=== PATIENT | female | born 1955 | race Caucasian/White ===

== ENCOUNTER → 2021-03-03 00:12 | Outpatient (CLI) | payer OTHER, SELFPAY ==
[2021-03-03 19:26] LABS: SARS-CoV-2 RNA PCR Negative
== END ==
PROVIDERS: PCP Family Medicine; Visit Provider Internal Medicine Gastroenterology
DX: Z01.812 Encounter for preprocedural laboratory examination (principal); Z20.822 Contact with and (suspected) exposure to COVID-19
CPT/HCPCS: C9803; U0003; U0005

== ENCOUNTER 2021-03-07 00:49 | Day surgery (SDC) | payer OTHER, SELFPAY ==
[2021-02-16 14:25] VITALS: BMI 36.5
[2021-03-07 08:55] VITALS: BP 149/88; PULSE 79; RESP 16; TEMP 36.6; O2SAT 98; BMI 36.4
[2021-03-07] MEDS: LACTATED RINGERS 1,000 ML 150 ML IV CONT (09:07)
--- NOTE | 2021-03-07 09:15 | WPDGICN ---
Assessment and Plan Assessment and plan (1) Family history of colonic polyps: Code(s): Z83.71 - Family history of colonic polyps Status: Acute Assessment and Plan: family history is significant both father and mother have had colon polyps. For this reason surveillance colonoscopy has been advised at 5 year intervals. GI Consult Note Consult date/time: 03/07/21 09:15 HPI: Xi Quiñonez is a 65 year old female Presents for surveillance screening colonoscopy. Both mother and father have had colon polyps. Patient states that her own weight appetite bowel movements are normal. She denies any blood in her stools. She denies abdominal pain. Patient's last colonoscopy was in 2014. Review of Systems Review of Systems: All systems reviewed & are unremarkable except as noted in HPI and below PMFSH Family History Family History Father Family history of glaucoma Hypertension Colon polyp Mother Colon polyp Other Diabetes mellitus Malignant neoplasm of prostate No family history of cardiovascular disease Social History Social History Smoking status: Never smoker Second hand tobacco smoke exposure: No Alcohol intake: current Drinks per week: 12 Alcohol use details: 2 drinks 5-6 nights weekly; either wine or beer Substance use: never Substance use type: does not use Living arrangements: with family Additional living arrangements comments: lives with spouse Gender identity (if verbalized by the patient): Female Sexual Orientation (if Verbalized by the Patient): Straight or Heterosexual Spiritual care concerns: No Meds Home Medications and Allergies Home Medications Medication Instructions Recorded Confirmed Type ascorbate calcium (vitamin C) 500 500 mg PO DAILY 12/27/20 03/07/21 History mg tablet multivitamin 1 tablet PO DAILY 12/27/20 03/07/21 History Allergies Allergy/AdvReac Type Severity Reaction Status Date / Time codeine AdvReac Severe Vomiting Verified 03/07/21 08:54 Vital Signs Vital Signs - 24 hr 03/07/21 08:55 Temperature 97.8 F Pulse Rate 79 Respiratory Rate 16 Blood Pressure 149/88 H Pulse Oximetry 98 Exam Narrative: Exam Narrative: Physical exam reveals patient be alert. Vital signs stable. HEENT exam is unremarkable. Patient is anicteric. Lungs are clear to auscultation and percussion. Heart is without murmur or extra sounds. Abdominal exam bowel sounds are present soft nontender with no organomegaly. Digital external rectal exam is normal
--- NOTE | 2021-03-07 09:41 | P.PNAN_ITS ---
Anes - Initial Pre Proc Eval Procedure: Operation Date: 03/07/21 10:00 Proposed Procedures p Screening Colonoscopy - Del Smith MD Date/Time: 03/07/21 09:41 Surgeon: Del Smith MD Pre Op Diagnosis: family hx of colon polyps, neoplasm screening Patient Data Age: 65 Gender: F Height: 1.73 m Weight: 108.7 kg Last Vital Signs Temp 97.8 F 03/07/21 08:55 Pulse 79 03/07/21 08:55 Resp 16 03/07/21 08:55 BP 149/88 H 03/07/21 08:55 Pulse Ox 98 03/07/21 08:55 Allergies Allergy/AdvReac Type Severity Reaction Status Date / Time codeine AdvReac Severe Vomiting Verified 03/07/21 08:54 Home Medications Medication Instructions Recorded Confirmed Type ascorbate calcium (vitamin C) 500 500 mg PO DAILY 12/27/20 03/07/21 History mg tablet multivitamin 1 tablet PO DAILY 12/27/20 03/07/21 History Patient hx anesthesia problems: none Family hx anesthesia problems: none [facility] Past Medical History Medical History (Updated 03/07/21 @ 09:39 by Suraj Rios MD) Hyperlipidemia Obesity (BMI 30-39.9) MATT (obstructive sleep apnea) Family History Family History Father Family history of glaucoma Hypertension Colon polyp Mother Colon polyp Other Diabetes mellitus Malignant neoplasm of prostate No family history of cardiovascular disease Social History Social History Smoking status: Never smoker Second hand tobacco smoke exposure: No Alcohol intake: current Drinks per week: 12 Alcohol use details: 2 drinks 5-6 nights weekly; either wine or beer Substance use: never Substance use type: does not use Living arrangements: with family Additional living arrangements comments: lives with spouse Gender identity (if verbalized by the patient): Female Sexual Orientation (if Verbalized by the Patient): Straight or Heterosexual Spiritual care concerns: No Anes - Eval Final PreProcedure Day of Procedure 03/07/21 09:41 Patient weight: obese Heart: regular rate and rhythm Lungs: clear to auscultation Airway: Mallampati scale class II Neurological: alert and oriented Last oral intake: >/= 8 hours ASA classification: III Emergent: no Anesthetic plan: proceed Anesthesia type and monitoring: general GIVS and standard monitoring Informed Consent: The patient's anesthetic plan and its attendant risks and benefits were discussed with the patient/family/POA. Questions were solicited and answers provided to the satisfaction of the patient/family/POA.
[2021-03-07 10:21] VITALS: BP 103/63; PULSE 77; RESP 15; O2SAT 98
[2021-03-07 10:31] VITALS: BP 102/63; PULSE 78; RESP 15; O2SAT 98
[2021-03-07 10:41] VITALS: BP 112/70; PULSE 78; RESP 18; O2SAT 99
== END 2021-03-07 10:55 | disposition home or self-care (01) ==
PROVIDERS: PCP Family Medicine; Visit Provider Internal Medicine Gastroenterology
PROC: 0DJD8ZZ Inspection of Lower Intestinal Tract, Via Natural or Artificial Opening Endoscopic (ICD-10-PCS; CPT 45378; principal; 2021-03-07 10:00)
DX: Z12.11 Encounter for screening for malignant neoplasm of colon (principal); D12.2 Benign neoplasm of ascending colon; K64.8 Other hemorrhoids; K57.30 Diverticulosis of large intestine without perforation or abscess without bleeding; Z83.71 Family history of colonic polyps; E78.5 Hyperlipidemia, unspecified; G47.33 Obstructive sleep apnea (adult) (pediatric); E66.9 Obesity, unspecified; Z68.36 Body mass index [BMI] 36.0-36.9, adult
CPT/HCPCS: 45385; 88305; C9803; J2704; J7120; U0003; U0005

== ENCOUNTER → 2021-05-16 17:22 | Outpatient (CLI) | payer OTHER, SELFPAY ==
--- NOTE | ~2021-05-16 | XR_ITS ---
EXAMINATION: XR knee LT min 4V DATE: 05/16/2021 18:44 INDICATION: Left knee pain. TECHNIQUE: 4 views of left knee including standing views were obtained. COMPARISON: None. FINDINGS: Bone alignment is normal. No fracture. There is moderate osteoarthritis of medial compartme nt and mild osteoarthritis of lateral and patellofemoral compartments. There is a small knee joint ef fusion. IMPRESSION: 1. Moderate left knee osteoarthritis. 2. Small left knee joint effusion. Reviewed, dictated and finalized at location A.
== END ==
PROVIDERS: PCP Family Medicine; Visit Provider Physician Assistant
DX: M25.562 Pain in left knee (principal); M17.12 Unilateral primary osteoarthritis, left knee; M25.462 Effusion, left knee
CPT/HCPCS: 73564

== ENCOUNTER 2022-07-26 08:30 | Outpatient (CLI) | payer OTHER, SELFPAY ==
[2022-07-26 18:18] LABS: Kit Draw Collected
== END 2022-07-26 08:31 | disposition home or self-care (01) ==
LOC: ANHGOSHLAB 08:35
PROVIDERS: PCP Family Medicine; Visit Provider Nurse Practitioner
DX: E78.5 Hyperlipidemia, unspecified (principal); Z13.21 Encounter for screening for nutritional disorder; Z13.29 Encounter for screening for other suspected endocrine disorder; Z13.6 Encounter for screening for cardiovascular disorders
CPT/HCPCS: 36415

== ENCOUNTER 2023-01-21 08:12 | Outpatient (CLI) | payer OTHER, SELFPAY ==
[2023-01-21 09:50] LABS: Kit Draw Collected
== END 2023-01-21 08:13 | disposition home or self-care (01) ==
LOC: ANHGOSHLAB 08:13
PROVIDERS: PCP Family Medicine; Visit Provider Physician Assistant
DX: R73.01 Impaired fasting glucose (principal); E78.5 Hyperlipidemia, unspecified
CPT/HCPCS: 36415

== ENCOUNTER 2023-02-05 08:08 | Outpatient (CLI) | payer OTHER, SELFPAY ==
[2023-02-05 10:30] LABS: Kit Draw Collected
== END 2023-02-05 08:09 | disposition home or self-care (01) ==
LOC: ANHGOSHLAB 08:11
PROVIDERS: PCP Family Medicine; Visit Provider Family Medicine
DX: E78.5 Hyperlipidemia, unspecified (principal); Z79.899 Other long term (current) drug therapy; E66.9 Obesity, unspecified
CPT/HCPCS: 36415

== ENCOUNTER → 2023-06-04 13:17 | Outpatient (CLI) | payer OTHER, SELFPAY ==
--- NOTE | ~2023-06-04 | DEXA_ITS ---
Bone Density Report Name: JAJA SOMERS Age: 67 Sex: Female Ethnicity: White Date of : 1955 Indication: postmenopausal; screening for osteoporosis; height loss; Referring Provider: Radhika Rogers Study: Bone densitometry was performed. Exam Date: June 04, 2023 Accession number: [id number] Bone Density: Region BMD T-score Z-score Classification AP Spine (L1-L4) 1.005 -0.4 1.4 Normal Femoral Neck (Left) 0.743 -1.0 0.6 Normal Total Hip (Left) 0.876 -0.5 0.7 Normal Femoral Neck (Right) 0.758 -0.8 0.7 Normal Total Hip (Right) 0.917 -0.2 1.1 Normal Total Hip Mean 0.897 -0.4 0.9 Normal World Health Organization criteria for BMD impression classify patients as: Normal (T-score at or above -1.0), Osteopenia (T-score between -1.0 and -2.5), or Osteoporosis (T-score at or below -2.5). 10-year Fracture Risk: FRAX not reported because: All T-scores for Spine Total, Hip Total, Femoral Neck at or above -1.0 Clinical Information Provided by Patient: Has used the following medications: Vitamin D Patient maximum height was 68 Menopause Age: 47 No regular weight bearing exercise Drinks caffeinated beverages Onset of menses at age 16 Number of children 2 Impression: The patient has normal bone mass. Discussion: BONE DENSITY IS ABOVE THE MINIMUM DESIRABLE LEVEL AT ALL SKELETAL SITES TESTED. This patient?s bone mineral density is above the minimum desirable level (T-score -1.0 or better) at all sites measured. The patient should follow a healthful lifestyle (good nutrition with adequate calcium and vitamin D, and appropriate weight-bearing exercise). Follow-Up: Consider repeating this study in 5 years or sooner if there is some new clinical indication. Reported by: GLENIS on 06/04/2023 1:33:00 PM. Reviewed, dictated and finalized at location AG[facility] ESQUIVEL
== END ==
PROVIDERS: PCP Family Medicine; Visit Provider Obstetrics & Gynecology
DX: Z13.820 Encounter for screening for osteoporosis (principal)
CPT/HCPCS: 77080

== ENCOUNTER 2023-07-31 07:54 | Outpatient (CLI) | payer OTHER, SELFPAY ==
[2023-07-31 19:28] LABS: Alanine Aminotransferase 28 U/L (6-35); Albumin Level 4.3 g/dL (3.5-5.1); Alkaline Phosphatase 65 U/L (38-126); Anion Gap 10 mmol/L (8-16); Aspartate Amino Transferase 21 U/L (14-36); Bilirubin,Total 0.6 mg/dL (0.2-1.3); Blood Urea Nitrogen 13 mg/dL (7-17); Calcium 9.5 mg/dL (8.4-10.2); Carbon Dioxide 28 mmol/L (22-30); Chloride 102 mmol/L (98-107); Cholesterol 212 mg/dL (0-200); Estimated Glomerular Filt Rate > 60; Glucose 93 mg/dL (65-110); HDL Direct 61 mg/dL; Potassium 4.1 mmol/L (3.4-5.0); Sodium 140 mmol/L (137-145); Triglycerides 90 mg/dL (<150)
[2023-07-31 19:39] LABS: LDL Cholesterol Direct 118 mg/dL
[2023-07-31 19:40] LABS: Hemoglobin A1C 5.1 % (<5.7)
[2023-07-31 19:50] LABS: Hematocrit 40.5 % (37.0-47.0); Mean Corpuscular HGB Conc 32.1 g/dl (32-36); Mean Corpuscular Hemoglobin 28.7 pg (26-34); Mean Corpuscular Volume 89.4 fl (80-100); Mean Platelet Volume 12.2 fl (7.4-10.4); Platelet Count Result 182 k/mm3 (150-375); Red Blood Count 4.53 M/mm3 (4.2-5.4); Red Cell Distribution Width 13.9 % (11.5-14.5); White Blood Count 5.9 K/mm3 (4.5-10.0)
== END 2023-07-31 07:55 | disposition home or self-care (01) ==
LOC: ANHGOSHLAB 07:56
PROVIDERS: PCP Family Medicine; Visit Provider Family Medicine
DX: E66.9 Obesity, unspecified (principal); E78.5 Hyperlipidemia, unspecified; R73.01 Impaired fasting glucose; Z79.899 Other long term (current) drug therapy
CPT/HCPCS: 36415; 80053; 80061; 83036; 84443; 85027

== ENCOUNTER 2023-12-19 08:47 | Outpatient (CLI) | payer MEDICARE, SELFPAY ==
[2023-12-19 13:31] LABS: Alanine Aminotransferase 25 U/L (6-35); Albumin Level 4.4 g/dL (3.5-5.1); Alkaline Phosphatase 71 U/L (38-126); Anion Gap 2 mmol/L (4-12); Aspartate Amino Transferase 35 U/L (14-36); Bilirubin,Total 0.7 mg/dL (0.2-1.3); Blood Urea Nitrogen 14 mg/dL (7-17); Calcium 9.7 mg/dL (8.4-10.2); Carbon Dioxide 31 mmol/L (22-30); Chloride 106 mmol/L (98-107); Cholesterol 210 mg/dL (0-200); Estimated Glomerular Filt Rate > 60; Glucose 96 mg/dL (65-110); HDL Direct 61 mg/dL; Potassium 4.3 mmol/L (3.4-5.0); Sodium 139 mmol/L (137-145); Triglycerides 97 mg/dL (<150)
[2023-12-19 13:43] LABS: LDL Cholesterol Direct 120 mg/dL
[2023-12-19 13:58] LABS: Hemoglobin A1C 5.1 % (<5.7)
== END 2023-12-19 08:48 | disposition home or self-care (01) ==
LOC: ANHGOSHLAB 08:52
PROVIDERS: PCP Family Medicine; Visit Provider Family Medicine
DX: R73.01 Impaired fasting glucose (principal); E66.9 Obesity, unspecified; E78.5 Hyperlipidemia, unspecified; Z79.899 Other long term (current) drug therapy
CPT/HCPCS: 36415; 80053; 80061; 83036

== ENCOUNTER 2024-05-10 11:06 | Outpatient (CLI) | payer MEDICARE, SELFPAY ==
--- NOTE | ~2024-05-10 | US_ITS ---
EXAMINATION: US venous doppler LE RT DATE: 05/10/2024 12:02 INDICATION: Right lower limb swelling TECHNIQUE: Grayscale ultrasound images without and with compression and Doppler ultrasound images of the right lower extremity veins were obtained. COMPARISON: None. FINDINGS: The visualized portions of right common femoral vein, profunda (deep) femoral vein, femoral vein, pop liteal vein, posterior tibial veins, peroneal veins, gastrocnemius vein and greater saphenous vein ou tflow are patent. IMPRESSION: 1. No deep venous thrombosis in the right lower limb. Reviewed, dictated and finalized at location A.
== END 2024-05-10 11:07 | disposition home or self-care (01) ==
PROVIDERS: PCP Family Medicine; Visit Provider Family Medicine
DX: M79.89 Other specified soft tissue disorders (principal)
CPT/HCPCS: 93971

== ENCOUNTER 2024-05-18 08:58 | Outpatient (CLI) | payer MEDICARE, SELFPAY ==
[2024-05-18 15:35] LABS: Alanine Aminotransferase 23 U/L (6-35); Albumin Level 4.6 g/dL (3.5-5.1); Alkaline Phosphatase 79 U/L (38-126); Anion Gap 10 mmol/L (4-12); Aspartate Amino Transferase 35 U/L (14-36); Bilirubin,Total 0.7 mg/dL (0.2-1.3); Blood Urea Nitrogen 15 mg/dL (7-17); Calcium 9.3 mg/dL (8.4-10.2); Carbon Dioxide 27 mmol/L (22-30); Chloride 101 mmol/L (98-107); Cholesterol 183 mg/dL (0-200); Estimated Glomerular Filt Rate > 60; Glucose 91 mg/dL (65-110); HDL Direct 64 mg/dL; Sodium 138 mmol/L (137-145); Triglycerides 78 mg/dL (<150)
[2024-05-18 15:46] LABS: LDL Cholesterol Direct 96 mg/dL
[2024-05-18 16:07] LABS: Hematocrit 43.8 % (37.0-47.0); Hemoglobin 14.1 g/dL (12.0-15.0); Mean Corpuscular HGB Conc 32.2 g/dl (32-36); Mean Corpuscular Hemoglobin 29.3 pg (26-34); Mean Corpuscular Volume 91.1 fl (80-100); Mean Platelet Volume 12.7 fl (7.4-10.4); Platelet Count Result 208 k/mm3 (150-375); Red Blood Count 4.81 M/mm3 (4.2-5.4); Red Cell Distribution Width 13.3 % (11.5-14.5); White Blood Count 8.1 K/mm3 (4.5-10.0)
== END 2024-05-18 08:59 | disposition home or self-care (01) ==
PROVIDERS: PCP Family Medicine; Visit Provider Family Medicine
DX: E78.5 Hyperlipidemia, unspecified (principal); R03.0 Elevated blood-pressure reading, without diagnosis of hypertension; E66.9 Obesity, unspecified; Z79.899 Other long term (current) drug therapy
CPT/HCPCS: 36415; 80053; 80061; 85027

== ENCOUNTER 2024-05-31 08:27 | Outpatient (CLI) | payer MEDICARE, SELFPAY ==
--- NOTE | 2024-06-04 10:55 | WPDHOLTEREM ---
Holter/Event Monitor Holter/Event Monitor Date of procedure: 05/31/24 Holter/Event Procedure: 48 Hr Holter Monitor Indications: Palpitations Conclusion: 1. 48 hour holter monitor on 05/31/24. 2. Underlying rhythm is sinus rhythm. HR range 51-122 bpm; average HR 79 bpm. 3. There are 14 premature supraventricular complexes. No supraventricular tachycardia. 4. There are 7 premature ventricular complexes. No ventricular tachycardia. 5. No sinoatrial or atrioventricular blocks. No significant pauses greater than 2 seconds. 6. No symptoms available for correlation.
== END 2024-05-31 08:28 | disposition home or self-care (01) ==
LOC: ANHCARD 08:30
PROVIDERS: PCP Family Medicine; Visit Provider Family Medicine
DX: R00.2 Palpitations (principal)
CPT/HCPCS: 93225; 93226

== ENCOUNTER 2024-07-02 00:07 | Day surgery (SDC) | payer MEDICARE, SELFPAY ==
[2024-06-25 15:05] VITALS: BMI 36.5
--- NOTE | 2024-06-25 15:18 | PC.NURSE ---
Report to the Outpatient Waiting Room, entrance under the green pavilion located off [facility], at time _6:00AM_ on date _07/02/24_. Planned Procedure Time: ___8:00AM .? Time changes happen often and if your time is changed the preop area will call you the afternoon before. - You and your visitor will be asked to self-screen and do not enter if you have any COVID symptoms. Please call surgeon if you need to reschedule. - A mask is optional within the hospital at this time. Patients may have clear liquids (water, carbonated beverages, clear teas, apple juice) until 3 hours prior to surgery with a maximum of 20 ounces. - No food from midnight until time of surgery and no smoking - Infants may have breast milk until 4 hours before surgery, infant formula 6 hours prior to surgery. - Children will be allowed to drink immediately following surgery.? If applicable, please bring a bottle or sippy cup to assist with drinking. Juice, water, soda, and popsicles are readily available.? For infants on formula, please bring formula the day of surgery.? Pacifiers are allowed. Take only the following medications with a SIP of water on the morning of surgery: ALBUTEROL INHALER NEEDED DO NOT STOP ANY OF YOUR OTHER PRESCRIPTION MEDICATIONS PRIOR TO SURGERY EXCEPT THE FOLLOWING Medications to discontinue per physician ___HOLD ALL VITAMINS/SUPPLEMENTS 7 DAYS PRE-OP PER DR LYONS. Date to take last dose 06/24/24 Please no make-up, nail kittitian, hairspray, perfume, deodorant, or body powder the day of surgery.? No jewelry (including any body piercings) or valuables the day of surgery, leave them at home.? Please take a shower or bath the night before, or the morning of, surgery with an antibacterial soap.? Wear comfortable, loose fitting clothing.? Children are encouraged to wear pajamas. - Jewelry must be removed prior to entering the operating room.? Rings and piercings that are not removed may be cut off. - The hospital will not accept responsibility for valuables.? - Please leave all valuables, including medications, at home the day of surgery. If you are going home after surgery, a licensed home delivery driver must drive you home.? - NO public transportation without another adult if you receive anesthesia. - We recommend that an adult stay with you for 24 hours following discharge. - We also recommend that you do not drive, make important decision, drink alcoholic beverages, or take any drugs that were not prescribed by your health care provider for at least 24 hours after your discharge time. For Pediatric surgeries, we recommend two adults accompany the child home. Follow any additional instructions given to you from your surgeon. Telephone instructions given to ____PATIENT and asked if any additional questions and then verbalized understanding. Patient advised to call surgeon office or pre surgery nurse liaison [phone] if any additional questions.
--- NOTE | 2024-06-27 17:22 | PM.IMHP ---
H&P: HPI History of Present Illness Date/Time: 06/27/24 17:22 Chief Complaint: mixed incontinence Narrative: Desires treatment for ZULMA. understands will not help OAB symptoms Review of Systems Review of Systems: All systems reviewed & are unremarkable except as noted in HPI and below PMFSH Past Medical History Medical History Actinic keratosis Chronic pain of left knee Degenerative joint disease of knee Effusion of knee joint right Family history of colonic polyps Hyperlipidemia Obesity (BMI 30-39.9) MATT (obstructive sleep apnea) Osteoarthritis of left knee Osteoporosis screening Right knee DJD Skin lesion of back Sleep apnea Trigger ring finger of right hand Surgical History Surgical History H/O gynecological procedure vulvar biopsy mild vulvitis; non specific histo pathological changes ?eczema ?lichen simplex chronicus History of appendectomy History of cholecystectomy History of endometrial ablation Family History Family History Father Family history of glaucoma Hypertension Colon polyp Mother Colon polyp Other Diabetes mellitus Malignant neoplasm of prostate No family history of cardiovascular disease Social History Social History Smoking status: Never smoker Second hand tobacco smoke exposure: No Alcohol intake: current Drinks per week: 7 Alcohol use details: 2 drinks 5-6 nights weekly; either wine or beer Substance use: never Substance use type: does not use Lack of Transportation: No Lack of Food: Never True Current Housing: I Have Housing Concerned About Future Housing: No Difficulty Paying Gas/Electric Bills: No Difficulty Paying for Meds: No Currently Unemployed: No Education: Bachelor's Degree Difficulty w/ Childcare or Family Care: No Living arrangements: with family Additional living arrangements comments: SPOUSE Occupation/Education: occupation Additional occupation/education comments: [employer] Gender identity (if verbalized by the patient): Female Sexual Orientation (if Verbalized by the Patient): Straight or Heterosexual Spiritual care concerns: No Meds Home Medications and Allergies Home Medications Medication Instructions Recorded Confirmed Type ascorbate calcium (vitamin C) 500 500 mg PO DAILY 12/27/20 06/25/24 History mg tablet multivitamin 1 tablet PO DAILY 12/27/20 06/25/24 History lutein 20 mg capsule 20 mg PO DAILY 06/12/22 06/25/24 History cholecalciferol (vitamin D3) 25 25 mcg PO DAILY 01/23/23 06/25/24 History mcg (1,000 unit) capsule simvastatin 10 mg tablet 10 mg PO DAILY #90 tabs 01/06/24 06/25/24 Rx clobetasol 0.05 % topical cream 1 applic topical BID PRN genital 03/15/24 06/25/24 Rx itching #60 grams lisinopril 10 mg tablet 10 mg PO DAILY #90 tabs 05/10/24 06/25/24 Rx albuterol sulfate 90 mcg/actuation 2 inh inhalation Q4H PRN shortness 05/18/24 06/25/24 Rx aerosol inhaler of breath or wheezing #8.5 grams furosemide 20 mg tablet 20 mg PO QAM #90 tabs 06/18/24 06/25/24 Rx potassium chloride 20 mEq 20 meq PO DAILY #90 tabs 06/18/24 06/25/24 Rx tablet,extended release Allergies Allergy/AdvReac Type Severity Reaction Status Date / Time codeine AdvReac Severe Vomiting Verified 06/25/24 15:01 Exam Narrative: + urethral mobility Assessment and Plan Assessment and plan (1) ZULMA (stress urinary incontinence, female): Code(s): N39.3 - Stress incontinence (female) (male) Status: Acute Assessment and Plan: plan for urethral sling
--- NOTE | 2024-07-01 15:02 | WPDANESEPPF ---
Anes - Initial Pre Proc Eval Procedure: Operation Date: 07/02/24 08:00 Proposed Procedures p Urethral Sling - John Thomas MD Date/Time: 07/01/24 15:02 Surgeon: John Thomas MD Pre Op Diagnosis: stress incont Patient Data Age: 68 Gender: F Height: 1.73 m Weight: 109 kg Allergies Allergy/AdvReac Type Severity Reaction Status Date / Time codeine AdvReac Severe Vomiting Verified 06/25/24 15:01 Home Medications Medication Instructions Recorded Confirmed Type ascorbate calcium (vitamin C) 500 500 mg PO DAILY 12/27/20 06/25/24 History mg tablet multivitamin 1 tablet PO DAILY 12/27/20 06/25/24 History lutein 20 mg capsule 20 mg PO DAILY 06/12/22 06/25/24 History cholecalciferol (vitamin D3) 25 25 mcg PO DAILY 01/23/23 06/25/24 History mcg (1,000 unit) capsule simvastatin 10 mg tablet 10 mg PO DAILY #90 tabs 01/06/24 06/25/24 Rx clobetasol 0.05 % topical cream 1 applic topical BID PRN genital 03/15/24 06/25/24 Rx itching #60 grams lisinopril 10 mg tablet 10 mg PO DAILY #90 tabs 05/10/24 06/25/24 Rx albuterol sulfate 90 mcg/actuation 2 inh inhalation Q4H PRN shortness 05/18/24 06/25/24 Rx aerosol inhaler of breath or wheezing #8.5 grams furosemide 20 mg tablet 20 mg PO QAM #90 tabs 06/18/24 06/25/24 Rx potassium chloride 20 mEq 20 meq PO DAILY #90 tabs 06/18/24 06/25/24 Rx tablet,extended release Patient hx anesthesia problems: none Family hx anesthesia problems: none Results Review: All pre-operative results and documents have been reviewed as part of the pre-operative evaluation. [facility] Past Medical History Medical History (Updated 07/01/24 @ 16:52 by Javed Reynolds Jr., HAIR STYLIST) Actinic keratosis Asthma Chronic pain of left knee Degenerative joint disease of knee Effusion of knee joint right EtOH dependence Family history of colonic polyps Hyperlipidemia Hypertension Obesity (BMI 30-39.9) MATT (obstructive sleep apnea) Osteoarthritis of left knee Osteoporosis screening Palpitation Right knee DJD Skin lesion of back Sleep apnea Trigger ring finger of right hand Surgical History Surgical History H/O gynecological procedure vulvar biopsy mild vulvitis; non specific histo pathological changes ?eczema ?lichen simplex chronicus History of appendectomy History of cholecystectomy History of endometrial ablation Family History Family History Father Family history of glaucoma Hypertension Colon polyp Mother Colon polyp Other Diabetes mellitus Malignant neoplasm of prostate No family history of cardiovascular disease Social History Social History Smoking status: Never smoker Second hand tobacco smoke exposure: No Alcohol intake: current Drinks per week: 7 Alcohol use details: 2 drinks 5-6 nights weekly; either wine or beer Substance use: never Substance use type: does not use Lack of Transportation: No Lack of Food: Never True Current Housing: I Have Housing Concerned About Future Housing: No Difficulty Paying Gas/Electric Bills: No Difficulty Paying for Meds: No Currently Unemployed: No Education: Bachelor's Degree Difficulty w/ Childcare or Family Care: No Living arrangements: with family Additional living arrangements comments: SPOUSE Occupation/Education: occupation Additional occupation/education comments: [employer] Gender identity (if verbalized by the patient): Female Sexual Orientation (if Verbalized by the Patient): Straight or Heterosexual Spiritual care concerns: No Anes - Eval Final PreProcedure Day of Procedure 07/01/24 15:02 Patient weight: obese Heart: regular rate and rhythm Lungs: clear to auscultation Airway: Mallampati scale class II Neurological: alert and oriented Last oral intake: >/= 8 ho
--- NOTE | 2024-07-01 16:50 | WPDANESEPP ---
Anes - Eval Pre Procedure Procedure: Operation Date: 07/02/24 08:00 Proposed Procedures p Urethral Sling - John Sharmila Thomas MD Date/Time: 07/01/24 16:50 Pre Op Diagnosis: stress incont Patient Data Age: 68 Gender: F Height: 1.73 m Weight: 109 kg Allergies Allergy/AdvReac Type Severity Reaction Status Date / Time codeine AdvReac Severe Vomiting Verified 06/25/24 15:01 Home Medications Medication Instructions Recorded Confirmed Type ascorbate calcium (vitamin C) 500 500 mg PO DAILY 12/27/20 06/25/24 History mg tablet multivitamin 1 tablet PO DAILY 12/27/20 06/25/24 History lutein 20 mg capsule 20 mg PO DAILY 06/12/22 06/25/24 History cholecalciferol (vitamin D3) 25 25 mcg PO DAILY 01/23/23 06/25/24 History mcg (1,000 unit) capsule simvastatin 10 mg tablet 10 mg PO DAILY #90 tabs 01/06/24 06/25/24 Rx clobetasol 0.05 % topical cream 1 applic topical BID PRN genital 03/15/24 06/25/24 Rx itching #60 grams lisinopril 10 mg tablet 10 mg PO DAILY #90 tabs 05/10/24 06/25/24 Rx albuterol sulfate 90 mcg/actuation 2 inh inhalation Q4H PRN shortness 05/18/24 06/25/24 Rx aerosol inhaler of breath or wheezing #8.5 grams furosemide 20 mg tablet 20 mg PO QAM #90 tabs 06/18/24 06/25/24 Rx potassium chloride 20 mEq 20 meq PO DAILY #90 tabs 06/18/24 06/25/24 Rx tablet,extended release Patient hx anesthesia problems: none Family hx anesthesia problems: none Results Review: All pre-operative results and documents have been reviewed as part of the pre-operative evaluation. [facility] Past Medical History Medical History (Updated 07/01/24 @ 16:52 by Javed Reynolds Jr., CYBER SYSTEMS ADMINISTRATOR) Actinic keratosis Asthma Chronic pain of left knee Degenerative joint disease of knee Effusion of knee joint right EtOH dependence Family history of colonic polyps Hyperlipidemia Hypertension Obesity (BMI 30-39.9) MATT (obstructive sleep apnea) Osteoarthritis of left knee Osteoporosis screening Palpitation Right knee DJD Skin lesion of back Sleep apnea Trigger ring finger of right hand Surgical History Surgical History H/O gynecological procedure vulvar biopsy mild vulvitis; non specific histo pathological changes ?eczema ?lichen simplex chronicus History of appendectomy History of cholecystectomy History of endometrial ablation Family History Family History Father Family history of glaucoma Hypertension Colon polyp Mother Colon polyp Other Diabetes mellitus Malignant neoplasm of prostate No family history of cardiovascular disease Social History Social History Smoking status: Never smoker Second hand tobacco smoke exposure: No Alcohol intake: current Drinks per week: 7 Alcohol use details: 2 drinks 5-6 nights weekly; either wine or beer Substance use: never Substance use type: does not use Lack of Transportation: No Lack of Food: Never True Current Housing: I Have Housing Concerned About Future Housing: No Difficulty Paying Gas/Electric Bills: No Difficulty Paying for Meds: No Currently Unemployed: No Education: Bachelor's Degree Difficulty w/ Childcare or Family Care: No Living arrangements: with family Additional living arrangements comments: SPOUSE Occupation/Education: occupation Additional occupation/education comments: [employer] Gender identity (if verbalized by the patient): Female Sexual Orientation (if Verbalized by the Patient): Straight or Heterosexual Spiritual care concerns: No Exam Day of Procedure 07/01/24 16:50 Patient weight: obese
[2024-07-02] VITALS (8 sets, daily range): BP systolic 106–159; BP diastolic 60–82; PULSE 70–81; RESP 13–18; TEMP 36.2–36.3; O2SAT 98–100; BMI 37.3
--- NOTE | 2024-07-02 04:21 | WPDHPUPDATE1 ---
History and Physical Update Update Date/Time: 07/02/24 04:21 History and Physical has been reviewed, including an updated exam of the patient. There are NO changes in the patient's condition. Risks, benefits, and alternatives have been discussed and questions answered. Patient agrees to proceed with procedure.
[2024-07-02] MEDS: ceFAZolin 2 GM/D5W 50 ML 2 GM/50 ML BAG IVPB (07:51)
[2024-07-02] MEDS: BUPIVACAINE/EPINEPHRINE 0.5% 50 ML VIAL 10 ML INFILTRATE (08:11)
[2024-07-02] MEDS: LACTATED RINGERS 1,000 ML 30 ML IV CONT (08:24)
--- NOTE | 2024-07-02 08:24 | W.PM.PROC2 ---
Procedure Note - Detailed Date of Procedure 07/02/24 Pre-op Diagnosis Stress incontinence Post-op Diagnosis Same Procedure Performed mid urethral sling cystoscopy Surgeon John Thomas MD Anesthesia General Indications This is a female with confirm stress urinary incontinence. She desires surgical correction. She understands the risks of bleeding, infection, injury to the urinary tract, vaginal mesh extrusion, urinary tract mesh erosion, obstructive voiding requiring a secondary procedure, hip and leg pain, dyspareunia, inability to improve overactive bladder symptoms. She agrees to proceed. Findings Uncomplicated urethral sling Description of Procedure She was correctly identified. Informed consent obtained. She was brought the operating room. She was given appropriate anesthesia. She was given appropriate perioperative antibiotics. A time-out performed. I marked out the site of the inner thigh incisions. I anesthetized the skin and made those incisions. I anesthetized the anterior vaginal wall over the mid urethra. I made a 1 cm incision. I dissected out laterally taking great care not to injure the urethra or the vaginal wall. I passed the helical trocars. First on the left. Then on the right. I did this from the thigh incision towards the vaginal incision. The sling was connected to the trocars and brought out through the thigh incision. I tensioned the sling appropriately. I cut and the plastic sheaths. I then closed the incision with 2 0 Vicryl. On cystoscopy there is no tumors or surgical artifact. There was no surgical artifact in the urethra. I cut the excess sling material. Close incisions with glue. She was awakened and transferred to the PACU in stable condition. Implants Urethral sling Estimated Blood Loss 10 Drains No Packing No Pathology None sent Complications No immediate complications Condition Stable Disposition PACU
== END 2024-07-02 09:50 | disposition home or self-care (01) ==
PROVIDERS: PCP Family Medicine; Visit Provider Urology
PROC: (CPT 57288; principal; 2024-07-02 08:00)
DX: N39.3 Stress incontinence (female) (male) (principal); E78.5 Hyperlipidemia, unspecified; I10 Essential (primary) hypertension; G47.33 Obstructive sleep apnea (adult) (pediatric); J45.909 Unspecified asthma, uncomplicated; M17.0 Bilateral primary osteoarthritis of knee; L57.0 Actinic keratosis; G89.29 Other chronic pain; M25.562 Pain in left knee; E66.9 Obesity, unspecified; Z68.37 Body mass index [BMI] 37.0-37.9, adult; Z79.51 Long term (current) use of inhaled steroids; Z98.890 Other specified postprocedural states; Z90.49 Acquired absence of other specified parts of digestive tract; Z83.719 Family history of colon polyps, unspecified; Z80.42 Family history of malignant neoplasm of prostate
CPT/HCPCS: 57288; C1771; J0690; J1100; J2003; J2250; J2405; J2704; J3010; J7120

== ENCOUNTER 2024-10-07 08:52 | Outpatient (CLI) | payer MEDICARE, SELFPAY ==
[2024-10-07 18:27] LABS: Hematocrit 41.5 % (37.0-47.0); Hemoglobin 13.6 g/dL (12.0-15.0); Mean Corpuscular HGB Conc 32.8 g/dl (32-36); Mean Corpuscular Hemoglobin 29.4 pg (26-34); Mean Corpuscular Volume 89.6 fl (80-100); Mean Platelet Volume 12.1 fl (7.4-10.4); Platelet Count Result 208 k/mm3 (150-375); Red Blood Count 4.63 M/mm3 (4.2-5.4); Red Cell Distribution Width 13.2 % (11.5-14.5); White Blood Count 8.6 K/mm3 (4.5-10.0)
[2024-10-07 19:13] LABS: Alanine Aminotransferase 21 U/L (6-35); Alkaline Phosphatase 75 U/L (38-126); Anion Gap 7 mmol/L (4-12); Aspartate Amino Transferase 28 U/L (14-36); Bilirubin,Total 0.7 mg/dL (0.2-1.3); Blood Urea Nitrogen 17 mg/dL (7-17); Calcium 9.2 mg/dL (8.4-10.2); Carbon Dioxide 28 mmol/L (22-30); Chloride 103 mmol/L (98-107); Cholesterol 199 mg/dL (0-200); Estimated Glomerular Filt Rate > 60; Glucose 104 mg/dL (65-110); HDL Direct 62 mg/dL; Potassium 4.4 mmol/L (3.4-5.0); Sodium 138 mmol/L (137-145); Triglycerides 106 mg/dL (<150)
[2024-10-07 19:24] LABS: LDL Cholesterol Direct 105 mg/dL
[2024-10-07 20:34] LABS: Hemoglobin A1C 5.4 % (<5.7)
== END 2024-10-07 08:53 | disposition home or self-care (01) ==
LOC: ANHGOSHLAB 08:53
PROVIDERS: PCP Family Medicine; Visit Provider Family Medicine
DX: E78.5 Hyperlipidemia, unspecified (principal); I10 Essential (primary) hypertension; R73.01 Impaired fasting glucose; E66.9 Obesity, unspecified; Z79.899 Other long term (current) drug therapy
CPT/HCPCS: 36415; 80053; 80061; 83036; 84443; 85027

== ENCOUNTER 2025-02-08 08:34 | Outpatient (CLI) | payer MEDICARE, SELFPAY ==
--- OUTSIDE RECORDS SUMMARY | 2025-02-08 08:39 | XMS_ITS | Clinical Summary ---
Author Organization [facility] Address [address] Solisn: Bubba Prelude ADT [place] [id number] Care Team Providers Care Vocational Case Manager Name Role Phone Unavailable Primary Care Provider Unavailabl e Medications clobetasoL (TEMOVATE) 0.05 % Cream APPLY TO THE AFFECTED AREA TWICE DAILY FOR 2 WEEKS. 30 Gram 1 10/28/2022 7:58 PM AMALGAMATOR 05/21/20 22 Active clobetasoL (TEMOVATE) 0.05 % Cream Apply topically twice daily as needed for genital itching. 60 Gram 3 09/11/2023 12:24 PM AMALGAMATOR 02/18/20 23 Active neomycin-polym yxin-dexAMETHa sone (MAXITROL) 3.5mg/mL-10,00 0 unit/mL-0.1 % suspension Administer 1 drop in the affected eye(s) four times daily for 7 days. 5 mL 02/24/2023 5:46 PM CDT 02/25/20 23 Active methocarbamoL (ROBAXIN) 500 mg tablet Take 1 tablet (500 mg total) by mouth 4 (four) times a day as needed for muscle spasms for up to 5 days 20 Tablet 06/07/2023 9:00 AM CDT 06/07/20 23 Active methylPREDNISo lone (MEDROL DOSPACK) 4 mg Tablets, Dose Pack Take 6 tabs on day 1, reduce dose by 1 daily until prescription is complete. 21 Tablet 06/07/2023 9:00 AM CDT 06/07/20 23 Active benzonatate (TESSALON) 100 mg capsule Take 1 Capsule (100 mg) by mouth 3 times daily as needed for cough. 21 Capsule 07/03/2023 12:25 PM CDT 07/03/20 23 Active lisinopriL (PRINIVIL) 10 mg tablet Take 1 Tablet (10 mg) by mouth daily. 30 Tablet 07/31/2023 5:25 PM AMALGAMATOR 07/31/20 23 Active clobetasoL (TEMOVATE) 0.05 % Cream Apply topically twice a day as needed for genital itching 60 Gram 3 03/25/2024 5:08 PM CDT 03/15/20 24 Active albuterol sulfate HFA 90 mcg/actuation aerosol inhaler INHALE 2 PUFFS BY MOUTH EVERY 4 HOURS NEEDED FOR SHORTNESS OF BREATH OR WHEEZING. 8.5 Gram 5 05/19/2024 2:05 PM CDT 05/18/20 24 Active furosemide (LASIX) 20 mg tablet Take 1 Tablet (20 mg) by mouth daily in the morning. 90 Tablet 1 09/29/2024 2:09 PM AMALGAMATOR 06/18/20 24 Active flu vaccine trivalent (65 yr+)(PF)(FLUZO NE HIGH DOSE) 180 mcg/0.5 mL IM syringe Inject 0.5 mL (180 mcg) by intramuscular injection. 0.5 mL 06/28/20 Active covid vaccine (12 yr up)(COMIRNATY) (PF) 30 mcg/0.3 mL IM syringe Inject 0.3 mL (30 mcg) by intramuscular injection. 0.3 mL 06/28/20 24 Active lisinopriL (PRINIVIL) 10 mg tablet Take 1 Tablet (10 mg) by mouth daily. 90 Tablet 1 11/23/2024 7:08 PM CDT 08/09/20 24 Active simvastatin (ZOCOR) 10 mg tablet Take 1 Tablet (10 mg) by mouth daily. 90 Tablet 1 11/23/2024 7:08 PM CDT 08/09/20 24 Active furosemide (LASIX) 20 mg tablet Take 1 Tablet (20 mg) by mouth daily in the morning. 90 Tablet 1 01/10/2025 4:38 PM CDT 01/11/20 25 Active potassium CHLORIDE (K-TAB) 20 mEq Extended Release tablet Take 1 Tablet (20 mEq) by mouth daily. 90 Tablet 1 01/16/2025 12:48 PM CDT 01/15/20 25 Active potassium chloride (K-TAB) 20 mEq Extended Release tablet Take 1 Tablet (20 mEq) by mouth daily. 90 Tablet 1 10/13/2024 4:13 PM AMALGAMATOR 06/18/20 24 025 Discontin ued(Reord er) Immunizations Immunization Administration Dates Next Due (COMIRNATY)(12 YR UP) COVID- 19 VACCINE, MRNA, SPIKE PROTEIN, LNP, AURORA(PF) 30 MCG/0.3 ML IM SUSP 09/11/2023 INFLUENZA VACCINE HIGH DOSE QUADRIVALENT 65 YR U P PF IM 08/13/2023 Social History Tobacco Use Types Packs/Day Years Used Date Smoking Tobacco: Never Assessed Comments Unknown Sex and Gender Information Value Date Recorded Sex Assigned at Not on file Legal Sex Female 3:27 PM CDT Gender Identity Not on file Sexual Orientation Not on file Plan of Treatment Health Maintenance Due Date Last Done Comments DTAP/TDAP/TD VACCINES (1 - Tdap) 1976 BREAST CANCER SCREENING 1997 COLORECTAL SCREENING 2002 Colorectal Cancer Screening 2002 FIT-DNA Q 3 years 2002 FIT/FOBT Q 1 year 2002 Flex Sig/CT Colonography Q 5 years 2002 PNEUMOCOCCAL VACCINE 50+ YEARS (1 of 1 - PCV) 11/20/19 08 ZOSTER VACCINE (1 of 2) 11/20/2007 OSTEOPOROSIS SCREENING 2022 INFLUENZA VACCINE (#1) 2024 08/13/2023 COVID-19 Vaccine (2 - season) 2024 RSV VACCINE (60+ or ) (1 - 1-dose 75+ series) 2032 Insurance RX [employer] (INTERNAL) [facility] [employer] Medicare Part D
[2025-02-08 11:22] LABS: Alanine Aminotransferase 26 U/L (6-35); Albumin Level 4.2 g/dL (3.5-5.1); Alkaline Phosphatase 67 U/L (38-126); Anion Gap 6 mmol/L (4-12); Aspartate Amino Transferase 34 U/L (14-36); Bilirubin,Total 0.5 mg/dL (0.2-1.3); Blood Urea Nitrogen 13 mg/dL (7-17); Calcium 9.3 mg/dL (8.4-10.2); Carbon Dioxide 29 mmol/L (22-30); Chloride 105 mmol/L (98-107); Cholesterol 207 mg/dL (0-200); Estimated Glomerular Filt Rate > 60; Glucose 103 mg/dL (65-110); HDL Direct 67 mg/dL; Potassium 4.3 mmol/L (3.4-5.0); Sodium 140 mmol/L (137-145); Triglycerides 112 mg/dL (<150)
[2025-02-08 11:33] LABS: LDL Cholesterol Direct 92 mg/dL
[2025-02-08 11:44] LABS: Vitamin D 25 Hydroxy 23.5 ng/mL
[2025-02-08 11:53] LABS: Hemoglobin A1C 5.2 % (<5.7)
[2025-02-08 12:17] LABS: Hepatitis C Virus Antibody Negative (Negative)
== END 2025-02-08 08:35 | disposition home or self-care (01) ==
LOC: ANHGOSHLAB 08:35
PROVIDERS: PCP Family Medicine; Visit Provider Nurse Practitioner
DX: R73.01 Impaired fasting glucose (principal); I10 Essential (primary) hypertension; E78.5 Hyperlipidemia, unspecified; E55.9 Vitamin D deficiency, unspecified; Z11.59 Encounter for screening for other viral diseases
CPT/HCPCS: 36415; 80053; 80061; 82306; 83036; 86803

== ENCOUNTER 2025-03-22 08:30 | Outpatient (RCR) | payer MEDICARE, SELFPAY ==
--- NOTE | 2025-02-18 11:13 | PTOPEVAL1 ---
Assessment and note entered by Lynda Land, PT Evaluation Information Assessment Status Evaluation Diagnosis R arm pain ICD-10 Condition Codes (PT) Pain in right shoulder M25.511 Onset late December 2024 Subjective Information Pt reports she was trying to pull the sheets off of her bed with palms down. She felt severe pain in her upper arm. She notes it has gotten better with Ibuprofen and resting. At rest her shoulder does not bother her but if she has anything in her hand and tries to raises it, it causes pain in the upper and outer portion of her R arm. She denies pain in the shoulder joint itself and nothing into the elbow. She reports difficulty with shoveling, grabbing a gallon of milk, and overhead reaching. The pt. is R handed. Pt does report when sitting on her couch at night she will often rest her arm on top of her head, she has pain when lowering it to the floor. Reported Pain Level Pain Score 0: Self Report Assessment PT Clinical Summary Pt is a 69 year old female who presents to physical therapy with a primary complaint of r upper arm pain since December 2024. Pt demonstrates weakness and pain consistent with rotator cuff pathology. This is re-enforced with (+) special testing during objective measurements. The pt also demonstrates abnormal posture and reproduction of pain with functional upper extremity movements that limit their ability to perform ADLs. Pt will benefit from skilled physical therapy to address the above listed deficits and return to PLOF. HEP instructed and written handout provided, EX tolerated well with no adverse effects to note post-session. Pt was educated on importance of adherence to HEP. Pt was also educated on anatomy, prognosis, home modalities, and PT POC. Plan of Care Interventions Electrical Stimulation,Hot Pack/Cold Pack,Manual Therapy,Neuro Re-education,Patient/Caregiver Education,Therapeutic Activities,Therapeutic Exercise PT Services Indicated Yes Treatment Frequency and 2x/wk for 8 visits Duration These treatments will address the objective and functional deficits as defined above. The patient will be advanced safely and appropriately in order for the patient to progress towards his/her prior level of function. Additional exercises will be introduced and as well as a comprehensive home exercise program upon discharge, if needed, ?to ensure carryover of functional gains achieved in the clinic. This treatment plan has been reviewed and agreement upon by the patient.
--- NOTE | 2025-02-18 11:13 | OPREHPOC ---
Outpatient Therapy Plan of Care This is a Multidisciplinary Plan of Care that may contain components documented by all disciplines (PT, OT, and ST.) PT Problem 1 PT Problem #1 Knowledge Deficit PT Goal 1 Goal / Goal Update Patient to demonstrate independence with HEP for improved self-reliance of symptom management. Target Visit 4 PT Problem 2 PT Problem #2 Pain PT Goal 1 Goal / Goal Update Patient to decrease subjective reports of pain to <2/10 with overhead reaching/lifting for improved ADL tolerance Target Visit 4 PT Problem 3 PT Problem #3 Impaired Strength PT Goal 1 Goal / Goal Update Patient to demonstrate R shoulder strength >=4+/5 for improved functional stability required for ADLs. Target Visit 8 PT Problem 4 PT Problem #4 Impaired Range of Motion PT Goal 1 Goal / Goal Update Pt to demonstrate an increase of R shoulder internal rotation functional reach of T10 with no reproduction of pain to improve dressing ability. PT Problem 5 PT Problem #5 Impaired Functional ADLs PT Goal 1 Goal / Goal Update Patient will score </=5% disability on the QuickDash to demonstrate meaningful improvement in patient's quality of life. Target Visit 8
--- NOTE | 2025-03-01 08:59 | PCPTNOTE ---
Pt. called office to cancel her appt this am, reports she hurt her knee and is unable to make it
--- NOTE | 2025-03-22 09:11 | PTOPDC ---
Assessment and note entered by Lynda Land, PT Evaluation Information Assessment Status Discharge Diagnosis R arm pain ICD-10 Condition Codes (PT) Pain in right shoulder M25.511 Onset late December 2024 Subjective Information Pt reports her shoulder has been feeling great the last week with no pain. She has only noticed a twinge of pain that was non-reproducible when she puts her arm above her head when sitting on the couch. She is feeling 100% improved since first starting PT even though she will have the slight twinges at random. She struggles to remember the last time she had the twinge other than last night . She has no questions or concerns regarding her shoulder at this time. Reported Pain Level Pain Score 0: Self Report Assessment PT Clinical Summary Patient's condition has improved overall as evidenced by advancements in symptoms, mobility, strength, and overall functional use of the extremity. Pt has met all therapy goals and is pleased with progress made in PT. Patient to DC from PT this date and continue with updated HEP as instructed. Pt to contact PT or PCP if questions or concerns arise. Plan of Care PT Services Indicated Yes
== END 2025-03-23 11:43 | disposition home or self-care (01) ==
LOC: ANHGOSHPT 08:30
PROVIDERS: PCP Family Medicine; Visit Provider Nurse Practitioner
DX: S46.211A Strain of muscle, fascia and tendon of other parts of biceps, right arm, initial encounter (principal)
CPT/HCPCS: 97110; 97112; 97140; 97161; 97530

== ENCOUNTER 2025-04-28 08:33 | Outpatient (CLI) | payer MEDICARE, SELFPAY ==
--- NOTE | ~2025-04-28 | MM_ITS ---
EXAMINATION: MM screening [facility] BI w nilo HISTORY: Screening TECHNIQUE: Craniocaudal and mediolateral oblique 3-D tomosynthesis images were obtained and synthetic 2-D images were generated. CAD analysis was submitted and interpreted. COMPARISON: Comparison to multiple prior studies sequentially, with oldest reviewed study dated 02/23. BREAST PARENCHYMAL COMPOSITION: There are scattered areas of fibroglandular density. FINDINGS: There is no evidence of suspicious mass, calcification, or architectural distortion to sugg est malignancy in either breast. There has been no suspicious interval change. IMPRESSION: 1. No mammographic evidence of malignancy. 2. Recommend routine screening mammography in one year. BI-RADS Category 1: Negative Reviewed, dictated and finalized at location A.
--- OUTSIDE RECORDS SUMMARY | 2025-04-28 08:41 | XMS_ITS | Clinical Summary ---
Author Organization [address] Address [address] [place] [id number] Care Team Providers Care Relish Blender Name Role Phone Melina Cooper DO Primary Care Provider [phone] Allergies Active Allergy Reactions Criticality Noted Date Comments Codeine Vomiting Low 06/07/2023 Medications predniSONE (DELTASONE) 10 mg tablet Take 5 tabs (50mg) daily for 2 days, then take 4 tabs (40mg) daily for 2 days. Continue to decrease by 1 tab (10mg) every 2 days until gone. 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 Gender Identity Not on file Sexual Orientation Not on file Obstetrics History Last Filed Vital Signs Vital Sign Reading Time Taken Comments Blood Pressure 144/88 07/03/2023 8:38 AM CDT Pulse 101 07/03/2023 8:38 AM CDT Temperature 36.8 C (98.2 F) 07/03/2023 8:38 AM CDT Respiratory Rate 18 07/03/2023 8:38 AM CDT Oxygen Saturation 95% 07/03/2023 8:38 AM CDT Inhaled Oxygen Concentration - - Weight 110.5 kg (243 lb 8 oz) 07/03/2023 8:38 AM CDT Height 172.7 cm (5' 7.99) 07/03/2023 8:38 AM CD T Body Mass Index 37.03 07/03/2023 8:38 AM CDT Plan of Treatment Health Maintenance Due Date Last Done Comments Breast Cancer Screening-Mammogram 1957 Colon Cancer Screening-Colonoscopy 1957 Depression Screening 1957 Fall Risk Assessment 1957 Hepatitis C Screening 1957 Osteoporosis Screening-Bone Density Scan 1957 Hepatitis B Screening 11/20/1975 Zoster Vaccine (1 of 2) 11/20/2007 Well Visit 65+ 2022 Covid-19 Vaccine (2023-2 5 season) 2024 09/28/2022, 03/30/2022, 08/23/2021, Additional history exists Influenza Vaccine (#1) 2025 , 06/22/2021, 06/25/2020, Additional history exists DTaP/Tdap/Td Vaccine (2 - Td or Tdap) 12/27/2030 12/27/2020 Pneumococcal vaccine 65+ Completed 01/23/2023 Insurance [facility] [employer] Care Teams Relish Blender Relationship Specialty Start Date End Date Melina Cooper DO PCP - General Family Medicine 06/07/23
--- OUTSIDE RECORDS SUMMARY | 2025-04-28 08:41 | XMS_ITS | Clinical Summary ---
Author Organization [facility] Address [address] Solisn: Bubba Prelude ADT [place] [address] Care Team Providers Care Quality Assurance Monitor Body Name Role Phone Unavailable Primary Care Provider Unavailabl e Medications clobetasoL (TEMOVATE) 0.05 % Cream APPLY TO THE AFFECTED AREA TWICE DAILY FOR 2 WEEKS. 30 Gram 1 10/28/2022 7:58 PM WARP KNITTER 2 Active clobetasoL (TEMOVATE) 0.05 % Cream Apply topically twice daily as needed for genital itching. 60 Gram 3 09/11/2023 12:24 PM WARP KNITTER 3 Active neomycin-polym yxin-dexAMETHa sone (MAXITROL) 3.5mg/mL-10,00 0 unit/mL-0.1 % suspension Administer 1 drop in the affected eye(s) four times daily for 7 days. 5 mL 02/24/2023 5:46 PM CDT 3 Active methocarbamoL (ROBAXIN) 500 mg tablet Take 1 tablet (500 mg total) by mouth 4 (four) times a day as needed for muscle spasms for up to 5 days 20 Tablet 06/07/2023 9:00 AM CDT 3 Active methylPREDNISo lone (MEDROL DOSPACK) 4 mg Tablets, Dose Pack Take 6 tabs on day 1, reduce dose by 1 daily until prescription is complete. 21 Tablet 06/07/2023 9:00 AM CDT 3 Active benzonatate (TESSALON) 100 mg capsule Take 1 Capsule (100 mg) by mouth 3 times daily as needed for cough. 21 Capsule 07/03/2023 12:25 PM CDT 3 Active lisinopriL (PRINIVIL) 10 mg tablet Take 1 Tablet (10 mg) by mouth daily. 30 Tablet 07/31/2023 5:25 PM WARP KNITTER 3 Active clobetasoL (TEMOVATE) 0.05 % Cream Apply topically twice a day as needed for genital itching 60 Gram 3 02/22/2025 10:27 AM CDT 4 Active albuterol sulfate HFA 90 mcg/actuation aerosol inhaler INHALE 2 PUFFS BY MOUTH EVERY 4 HOURS NEEDED FOR SHORTNESS OF BREATH OR WHEEZING. 8.5 Gram 5 05/19/2024 2:05 PM CDT 4 Active furosemide (LASIX) 20 mg tablet Take 1 Tablet (20 mg) by mouth daily in the morning. 90 Tablet 1 09/29/2024 2:09 PM WARP KNITTER 4 Active flu vaccine trivalent (65 yr+)(PF)(FLUZO NE HIGH DOSE) 180 mcg/0.5 mL IM syringe Inject 0.5 mL (180 mcg) by intramuscular injection. 0.5 mL 4 Active covid vaccine (12 yr up)(COMIRNATY) (PF) 30 mcg/0.3 mL IM syringe Inject 0.3 mL (30 mcg) by intramuscular injection. 0.3 mL 4 Active furosemide (LASIX) 20 mg tablet Take 1 Tablet (20 mg) by mouth daily in the morning. 90 Tablet 1 04/16/2025 5:25 PM CDT 5 Active potassium CHLORIDE (K-TAB) 20 mEq Extended Release tablet Take 1 Tablet (20 mEq) by mouth daily. 90 Tablet 1 04/26/2025 10:55 AM CDT 5 Active lisinopriL (PRINIVIL) 10 mg tablet Take 1 Tablet (10 mg) by mouth daily. 90 Tablet 1 03/02/2025 2:35 PM CDT 5 Active simvastatin (ZOCOR) 10 mg tablet Take 1 Tablet (10 mg) by mouth daily. 90 Tablet 1 03/02/2025 2:35 PM CDT 5 Active Encounters Date Type Department Care Team Description 04/20/2025 External Device Data [facility] ABSTRACTION Provider, Abstract 03/30/2025 External Device Data [facility] ABSTRACTION Provider, Abstract from Last 3 Months Immunizations Immunization Administration Dates Next Due (AREXVY)(60 YR UP) RSV, LLOYD MBINANT, PROTEIN SUBUNIT RSVPREF, ADJUVANT RECONSTITUTED, 0.5 ML, PF 04/21/2025 (COMIRNATY)(12 YR UP) COVID- 19 VACCINE, MRNA, [...] (1 of 2) 11/20/2007 OSTEOPOROSIS SCREENING 2022 COVID-19 Vaccine (2 - season) 2024 INFLUENZA VACCINE (#1) 2025 08/13/2023 RSV VACCINE (60+ or ) Completed 04/21/2025 Insurance RX [employer] (INTERNAL) [facility] [employer] Medicare Part D
== END 2025-04-28 08:34 | disposition home or self-care (01) ==
LOC: CHSIMG 08:33
PROVIDERS: PCP Family Medicine; Visit Provider Obstetrics & Gynecology
DX: Z12.31 Encounter for screening mammogram for malignant neoplasm of breast (principal)
CPT/HCPCS: 77063; 77067

== ENCOUNTER 2025-08-24 08:36 | Outpatient (CLI) | payer MEDICARE, SELFPAY ==
[2025-08-24 13:47] LABS: Alanine Aminotransferase 18 U/L (6-35); Albumin Level 4.3 g/dL (3.5-5.1); Alkaline Phosphatase 73 U/L (38-126); Anion Gap 10 mmol/L (4-12); Aspartate Amino Transferase 23 U/L (14-36); Bilirubin,Total 0.5 mg/dL (0.2-1.3); Blood Urea Nitrogen 18 mg/dL (7-17); Calcium 9.3 mg/dL (8.4-10.2); Carbon Dioxide 23 mmol/L (22-30); Chloride 104 mmol/L (98-107); Cholesterol 186 mg/dL (0-200); Estimated Glomerular Filt Rate > 60; Glucose 88 mg/dL (65-110); HDL Direct 61 mg/dL; Potassium 4.0 mmol/L (3.4-5.0); Sodium 137 mmol/L (137-145); Total Protein 6.9 g/dL (6.3-8.2); Triglycerides 75 mg/dL (<150)
[2025-08-24 18:03] LABS: Hemoglobin A1C 5.3 % (<5.7)
== END 2025-08-24 08:37 | disposition home or self-care (01) ==
PROVIDERS: PCP Family Medicine; Visit Provider Nurse Practitioner
DX: E78.5 Hyperlipidemia, unspecified (principal); R73.01 Impaired fasting glucose; E55.9 Vitamin D deficiency, unspecified
CPT/HCPCS: 36415; 80053; 80061; 82306; 83036